=== PATIENT | male | born 1960 | race Two or more races ===

== ENCOUNTER 2022-08-06 09:55 | Outpatient (CLI) | payer MEDICARE ==
[2022-08-06 11:43] LABS: BASOPHILS # (AUTO) 0.1 K/uL (0.0-0.2); BASOPHILS % (AUTO) 0.9 % (0.0-2.0); HEMATOCRIT 40 % (39-51); HEMOGLOBIN 13.6 g/dL (13.5-17.5); LYMPHOCYTES # (AUTO) 0.6 K/uL (0.8-4.8); LYMPHOCYTES % (AUTO) 6.1 % (20.0-44.0); MEAN CORPUSCULAR HGB CONC 34 g/dl (31.0-36.0); MEAN CORPUSCULAR VOLUME 93 fL (80-96); MONOCYTES # (AUTO) 1.1 K/uL (0.1-1.30); MONOCYTES % (AUTO) 10.7 % (2.0-12.0); NEUTROPHILS # (AUTO) 7.8 K/uL (1.8-8.9); NEUTROPHILS % (AUTO) 76.3 % (43.0-81.0); PLATELET COUNT (AUTO) 177 K/uL (150-450); RED BLOOD CELL COUNT(AUTO) 4.36 MIL/uL (4.5-6.0); WHITE BLOOD COUNT (AUTO) 10.2 K/uL (4.3-11.0)
[2022-08-06 11:53] LABS: C-REACTIVE PROTEIN 0.5 mg/dL (0.0-0.9); FREE T4 (FREE THYROXINE) 1.41 ng/dL (0.76-1.46); PROSTATE SPECIFIC ANTIGEN SCR 1.42 ng/mL (0.00-4.00); THYROID STIMULATING HORMONE 1.23 uIU/mL (0.358-3.74)
[2022-08-06 12:23] LABS: ALBUMIN 3.8 g/dL (3.4-5.0); BILIRUBIN,TOTAL 4.2 mg/dL (0.2-1.0); CALCIUM, SERUM 8.7 mg/dL (8.5-10.1); CREATININE 3.4 mg/dL (0.6-1.3); MAGNESIUM 1.8 mg/dL (1.8-2.4); PHOSPHORUS 2.3 mg/dL (2.5-4.9); TOTAL PROTEIN, SERUM 7.1 g/dL (6.4-8.2)
[2022-08-06 13:23] LABS: POTASSIUM 2.7 mmol/L (3.5-5.1)
== END 2022-08-06 23:59 | disposition home or self-care (01) ==
LOC: MSC 09:55
PROVIDERS: ATTEND Internal Medicine
DX: I12.0 Hypertensive chronic kidney disease with stage 5 chronic kidney disease or end stage renal disease (principal); N18.6 End stage renal disease; Z99.2 Dependence on renal dialysis; J32.9 Chronic sinusitis, unspecified; K64.9 Unspecified hemorrhoids; R10.9 Unspecified abdominal pain; Z86.59 Personal history of other mental and behavioral disorders; Z87.19 Personal history of other diseases of the digestive system; A60.00 Herpesviral infection of urogenital system, unspecified; H93.19 Tinnitus, unspecified ear; M54.30 Sciatica, unspecified side; Z79.899 Other long term (current) drug therapy; Z98.890 Other specified postprocedural states
CPT/HCPCS: 80061; 85025; 83735; 83036; 84100; 84153; 85652; 36415; 84439; 82746; 84443; 82607; 80053; 86140; G0463

== ENCOUNTER 2023-01-07 11:30 | Outpatient (CLI) | payer MEDICARE, OTHER | END 2023-01-07 23:59 | disposition home or self-care (01) | LOC: MSC 11:30 | PROVIDERS: ATTEND Internal Medicine | DX: R22.42 Localized swelling, mass and lump, left lower limb (principal); I12.0 Hypertensive chronic kidney disease with stage 5 chronic kidney disease or end stage renal disease; N18.6 End stage renal disease; Z99.2 Dependence on renal dialysis; C90.01 Multiple myeloma in remission; K64.9 Unspecified hemorrhoids; R10.9 Unspecified abdominal pain; Z86.59 Personal history of other mental and behavioral disorders; A60.00 Herpesviral infection of urogenital system, unspecified; H93.19 Tinnitus, unspecified ear; M54.30 Sciatica, unspecified side; Z87.442 Personal history of urinary calculi; Z79.899 Other long term (current) drug therapy; Z98.890 Other specified postprocedural states ==

== ENCOUNTER 2023-01-09 08:16 | Emergency (ER) | payer MEDICARE, OTHER ==
[~2023-01-09] VITALS: Ht 167.6 cm; Wt 72.6 kg
--- NOTE | 2023-01-09 08:30 | NUR ---
"Started having pain on left side this am"
[2023-01-09 09:34] LABS: BASOPHILS # (AUTO) 0.1 K/uL (0.0-0.2); BASOPHILS % (AUTO) 0.7 % (0.0-2.0); EOSINOPHILS % (AUTO) 3.4 % (0.0-6.0); HEMATOCRIT 41 % (39-51); HEMOGLOBIN 13.6 g/dL (13.5-17.5); LYMPHOCYTES # (AUTO) 0.5 K/uL (0.8-4.8); LYMPHOCYTES % (AUTO) 6.1 % (20.0-44.0); MEAN CORPUSCULAR HGB CONC 33 g/dl (31.0-36.0); MEAN CORPUSCULAR VOLUME 95 fL (80-96); MONOCYTES # (AUTO) 0.7 K/uL (0.1-1.30); MONOCYTES % (AUTO) 8.1 % (2.0-12.0); NEUTROPHILS # (AUTO) 7.3 K/uL (1.8-8.9); NEUTROPHILS % (AUTO) 81.7 % (43.0-81.0); PLATELET COUNT (AUTO) 133 K/uL (150-450); RED BLOOD CELL COUNT(AUTO) 4.34 MIL/uL (4.5-6.0)
[2023-01-09 09:41] LABS: CALCIUM, SERUM 9.1 mg/dL (8.5-10.1); CREATININE 3.8 mg/dL (0.6-1.3); POTASSIUM 3.7 mmol/L (3.5-5.1)
[2023-01-09 09:47] LABS: ALBUMIN 4.1 g/dL (3.4-5.0); BILIRUBIN,DIRECT 0.8 mg/dL (0.0-0.2); BILIRUBIN,TOTAL 3.1 mg/dL (0.2-1.0); TOTAL PROTEIN, SERUM 7.4 g/dL (6.4-8.2)
[2023-01-09] MEDS ORDERED: HYDR-4303 PO (10:23)
[2023-01-09] MEDS ORDERED: HYDROCODONE/APAP 5/325MG TABLET PO ONE (10:30)
[2023-01-09] MEDS ORDERED: HYDROCODONE/APAP 5/325MG TABLET ONE (10:35)
[2023-01-09 11:15] VITALS: BP 151/79
--- NOTE | 2023-01-09 11:15 | NUR ---
Patient discharged to home in stable condition. Written and verbal after care instructions given. Patient verbalizes understanding of instruction.
== END 2023-01-09 11:16 | disposition home or self-care (01) ==
LOC: ER 08:23
DX: N20.0 Calculus of kidney (principal); K21.9 Gastro-esophageal reflux disease without esophagitis; I10 Essential (primary) hypertension
CPT/HCPCS: 36415; 80048-TC; 80076-TC; 83690-TC; 85025-TC

== ENCOUNTER 2023-05-07 09:51 | Emergency (ER) | payer MEDICARE, OTHER ==
[~2023-05-07] VITALS: Ht 170.2 cm; Wt 68.5 kg
[~2023-05-07 09:51] MED LIST: HYDR-4303 PO
[2023-05-07] MEDS ORDERED: LIDOCAINE 1% INJ 50 ML MDV IJ ONE (10:19)
--- NOTE | 2023-05-07 10:20 | NUR ---
BIBS FOR RIGHT HIP ABSCESS. A/O X 3, ABLE TO MAKE NEEDS KNOWN, TOLERATING WELL ON ROOM AIR. Addendum: 05/07/23 at 1123 by NGOZI ABSCESS IS ON LEFT HIP
[2023-05-07] MEDS ORDERED: LIDOCAINE HCL/PF 1% 30 ML VIAL TP ONE (10:30)
--- NOTE | 2023-05-07 11:00 | NUR ---
LEFT HIP ABSCESS DRAINAGE PERFORMED BY . NO BLEEDING NOTED FROM SITE. DRESSING APPLIED AND SECURED.
[2023-05-07] MEDS ORDERED: CLIN300C12 PO (11:11)
--- NOTE | 2023-05-07 11:23 | NUR ---
Patient discharged to home in stable condition. Written and verbal after care instructions given. Patient verbalizes understanding of instruction.
[2023-05-07 11:25] VITALS: BP 153/90; TEMP 98
[2023-05-08] MEDS ORDERED: AMLO-213 PO (16:32)
[2023-05-08] MEDS ORDERED: CALC667C6 PO (16:32)
[2023-05-08] MEDS ORDERED: ASPI-1169 PO (16:32)
[2023-05-08] MEDS ORDERED: CARV6.252 PO (16:38)
== END 2023-05-07 11:25 | disposition home or self-care (01) ==
LOC: ER 09:55
DX: L02.416 Cutaneous abscess of left lower limb (principal); I10 Essential (primary) hypertension; K21.9 Gastro-esophageal reflux disease without esophagitis; Z79.899 Other long term (current) drug therapy
CPT/HCPCS: 99283; 10060; J3490 ×2; A6407

== ENCOUNTER → 2023-05-29 | Outpatient (CLI) | payer MEDICARE, OTHER ==
[~2023-05-29] MED LIST changes: +AMLO-213 PO; +ASPI-1169 PO; +CALC667C6 PO; +CARV6.252 PO; +CLIN300C12 PO; -HYDR-4303 PO
== END | disposition home or self-care (01) ==
LOC: MSC 15:30
PROVIDERS: ATTEND Internal Medicine
DX: I12.0 Hypertensive chronic kidney disease with stage 5 chronic kidney disease or end stage renal disease (principal); N18.6 End stage renal disease; Z99.2 Dependence on renal dialysis; R22.42 Localized swelling, mass and lump, left lower limb; C90.01 Multiple myeloma in remission; K64.9 Unspecified hemorrhoids; R10.9 Unspecified abdominal pain; Z86.59 Personal history of other mental and behavioral disorders; A60.00 Herpesviral infection of urogenital system, unspecified; H93.19 Tinnitus, unspecified ear; M54.30 Sciatica, unspecified side; Z87.442 Personal history of urinary calculi; Z79.899 Other long term (current) drug therapy